=== PATIENT | male | born 1950 | race Caucasian/White ===

== ENCOUNTER 2017-03-30 14:53 | Emergency (ER) | payer MEDICARE ==
[~2017-03-30] VITALS: Ht 172.7 cm; Wt 93.0 kg
[~2017-03-30 14:53] MED LIST: BACTRIM DS TAB1 EACH PO; NORCO 5-325 TA1 EACH PO
== END 2017-03-30 16:11 | disposition home or self-care (01) ==
LOC: ED 14:53
DX: S01.81XA Laceration without foreign body of other part of head, initial encounter (principal); Z90.89 Acquired absence of other organs; X58.XXXA Exposure to other specified factors, initial encounter
CPT/HCPCS: 12011; 90471; 90715; 99282